=== PATIENT | male | born 1995 | race American Indian/Alaskan Native ===

== ENCOUNTER 2019-05-24 19:36 | Emergency (ER) | payer OTHER ==
[~2019-05-24] VITALS: Ht 172.7 cm; Wt 77.8 kg
[2019-05-24 19:37] VITALS: BP 135/78
[2019-05-24] MEDS ORDERED: AUGM875T28 PO (20:34)
== END 2019-05-24 20:38 | disposition home or self-care (01) ==
LOC: M ED 19:36
DX: H65.03 Acute serous otitis media, bilateral (principal); J02.9 Acute pharyngitis, unspecified; J35.1 Hypertrophy of tonsils; H92.03 Otalgia, bilateral